=== PATIENT | male | born 2000 | race Caucasian/White ===

== ENCOUNTER 2023-11-19 19:14 | Emergency (ER) | payer OTHER ==
[2023-11-19 19:31] VITALS: RESP 18; TEMP 98.8; BMI 27.8
[2023-11-19] MEDS ORDERED: MAG HYDROX/AL HYDROX/SIMETH 30 ML UNIT-DOSE CUP ONE (20:20)
[2023-11-19] MEDS ORDERED: FAMOTIDINE 20 MG/50 ML IVPB 20 MG/50 ML MG IVPB ONE (20:20)
[2023-11-19] MEDS ORDERED: ALBUTEROL SO4 HFA INHALER IH ONE (20:20)
[2023-11-19] MEDS: ALBUTEROL SO4 HFA INHALER IH PRN (20:33)
[2023-11-19] MEDS: FAMOTIDINE 20 MG/50 ML IVPB 20 MG/50 ML MG IVPB ONE (20:33)
[2023-11-19] MEDS: MAG HYDROX/AL HYDROX/SIMETH 30 ML UNIT-DOSE CUP PO ONE (20:33)
[2023-11-19 20:39] LABS: BASO % 0.4 % (0-2.0); HEMATOCRIT 46.8 % (35.4-49); HEMOGLOBIN 16.1 GM/dL (11.7-16.9); LYMPH % 17.6 % (8-40); MCH 32.3 pg (25.7-33.7); MCHC 34.4 g/dl (32.0-35.9); MEAN CELL VOLUME 94.1 fl (80-96); MEAN PLT VOLUME 7.4 fl (7.5-11.1); MONO % 11.3 % (3.8-10.2); NEUT % 69.7 % (42.8-82.8); PLATELET COUNT 286 10^3/uL (134-434); RBC 4.97 M/mm3 (4.00-5.60); WHITE BLOOD COUNT 4.3 K/mm3 (4.0-10.0)
[2023-11-19 20:54] LABS: POTASSIUM 4.2 mmol/L (3.5-5.1)
[2023-11-19 20:56] LABS: ALBUMIN 4.4 g/dl (3.4-5.0); CALCIUM 9.5 mg/dL (8.5-10.1)
[2023-11-19 21:00] LABS: CREATININE 1.1 mg/dL (0.55-1.3)
[2023-11-19 21:01] LABS: BILIRUBIN,TOTAL 1.1 mg/dL (0.2-1); TOT PROT 7.7 g/dl (6.4-8.2)
[2023-11-19 21:29] VITALS: BP 122/68; PULSE 75
== END 2023-11-19 21:29 | disposition home or self-care (01) ==
LOC: JER 19:14
PROC: 3E033GC Introduction of Other Therapeutic Substance into Peripheral Vein, Percutaneous Approach (ICD-10-PCS; principal; 2023-11-19)
DX: K21.9 Gastro-esophageal reflux disease without esophagitis (principal); J40 Bronchitis, not specified as acute or chronic; R10.13 Epigastric pain; R10.30 Lower abdominal pain, unspecified; Z20.822 Contact with and (suspected) exposure to COVID-19
CPT/HCPCS: 0241U-QW; 36415; 71046-TC-FY; 80053; 84484; 85025; 93005; 93010; 99285-25

== ENCOUNTER 2024-03-24 10:16 | Emergency (ER) | payer OTHER ==
[2024-03-24 10:22] VITALS: BP 131/79; PULSE 79; RESP 18; TEMP 98.3; BMI 24.6
== END 2024-03-24 11:02 | disposition home or self-care (01) ==
LOC: JERFT 10:16
DX: L30.9 Dermatitis, unspecified (principal)
CPT/HCPCS: 99283-25